=== PATIENT | male | born 1935 | race Two or more races ===

== ENCOUNTER 2024-10-01 04:50 | Day surgery (SDC) | payer OTHER ==
[2024-08-28 14:13] VITALS: BP 163/74
[2024-09-25 12:43] LABS: URINE APPEARANCE Error; URINE BILIRRUBIN Negative (NEGATIVE); URINE BLOOD NHT; URINE COLOR Yellow; URINE GLUCOSE Negative (NEGATIVE); URINE KETONE Negative (NEGATIVE); URINE LEUKOCYTE Negative; URINE NITRATE Negative; URINE PROTEIN Negative (NEGATIVE); URINE UROBILINOGEN 0.2 E.U./dl
[2024-09-25 12:44] LABS: URINE BACTERIA 9.7 uL (0.0-1933); URINE CAST 0.29 uL (0.0-1.40); URINE EPITHELIAL CELLS 1.7 uL (0.0-38.8); URINE RBC 57.7 uL (0.0-20.8); URINE WBC 1.1 uL (0.0-23.2)
[2024-09-25 12:53] LABS: HEMATOCRIT 41.6 % (39.0-48.0); HEMOGLOBIN 13.7 g/dL (13-16.00); MEAN CELL VOLUME 92.3 fL (80.0-100.00); MEAN CORPUSCULAR HEMOGLOBIN 30.3 pg (27.00-32.0); MEAN CORPUSCULAR HGB CONC 32.8 g/dl (32.0-36.0); PLATELET COUNT 206 K/uL (150-450); RED BLOOD COUNT 4.51 M/uL (4.00-6.00); RED CELL DISTRIBUTION WIDTH 14.3 % (11.5-14.5)
[2024-09-25 13:15] LABS: INR 0.96; PARTIAL THROMBOPLASTIN TIME 26.3 SECONDS (22.0-34.0); PROTHROMBIN TIME 10.5 SECONDS (9.0-11.5)
[2024-09-25 13:20] LABS: ALBUMIN 3.7 gm/dL (3.4-5.0); BILIRUBIN TOTAL 0.47 mg/dL (0.3-1.2); CALCIUM 9.1 mg/dL (8.5-10.1); CREATININE SERUM 0.93 mg/dL (0.70-1.30); GFR 76.68; GLOBULINA 3.6 G/DL (2.4-3.5); POTASSIUM 4.33 mEq/L (3.5-5.1); TOTAL PROTEIN 7.3 gm/dL (6.4-8.2)
[2024-09-25 13:44] VITALS: BP 146/68
[~2024-10-01] VITALS: Ht 162.6 cm; Wt 59.9 kg
[~2024-10-01 04:50] MED LIST: CYMBALTA60 MG PO; GLIMEPIRIDE1 M1 PO; GLUMETZA500 MG PO; HORIZANT600 MG PO; LIPITOR20 MG PO; LOSARTAN POTASS50 MG PO; MYRBETRIQ25 MG PO; NORVASC2.5 M1 PO; SYNTHROID50 MCG PO
[2024-10-01] MEDS ORDERED: CEFAZOLIN SODIUM 1,000 MG VIAL ONE (08:28)
[2024-10-01] MEDS ORDERED: LIDOCAINE HCL 1%/EPINEPHRINE 20ML VIAL IJ ONE ×2 (08:56→09:30)
[2024-10-01] MEDS ORDERED: BUPIVACAINE HCL 0.5% 50ML VIAL ONE (08:56)
[2024-10-01] MEDS ORDERED: CEFAZOLIN SODIUM 1,000 MG VIAL IV ONE (09:30)
[2024-10-01] MEDS ORDERED: BUPIVACAINE HCL/PF 0.25% 50 ML VIAL IJ ONE (09:30)
[2024-10-01] MEDS ORDERED: POVIDONE-IODINE 118 ML BOTT TOP ONE (09:41)
[2024-10-01] MEDS ORDERED: TRAM1TAB98 PO (11:34)
[2024-10-01] MEDS ORDERED: CEPHALEXIN500 M1 PO (11:35)
== END 2024-10-01 13:30 | disposition home or self-care (01) ==
LOC: CIR.AMB 04:50
PROVIDERS: ATTEND Surgery
DX: R15.9 Full incontinence of feces (principal); I10 Essential (primary) hypertension
CPT/HCPCS: 64581; 95972; C1778

== ENCOUNTER 2024-10-22 06:00 | Day surgery (SDC) | payer OTHER ==
[~2024-10-22 06:00] MED LIST changes: +CEPHALEXIN500 M1 PO; +TRAM1TAB98 PO
[2024-10-22] MEDS ORDERED: CEFAZOLIN SODIUM 1,000 MG VIAL ONE (07:03)
[2024-10-22] MEDS ORDERED: BUPIVACAINE HCL/MPF 0.5% 30ML VIAL ONE (07:18)
[2024-10-22] MEDS ORDERED: LIDOCAINE HCL 1%/EPINEPHRINE 20ML VIAL IJ ONE ×2 (07:18→08:00)
[2024-10-22] MEDS ORDERED: BUPIVACAINE HCL 30 ML VIAL IJ ONE (08:00)
[2024-10-22] MEDS ORDERED: CEFAZOLIN SODIUM 1,000 MG VIAL IV ONE (08:00)
[2024-10-22] MEDS ORDERED: TRAM1TAB98 PO (08:13)
== END 2024-10-22 10:40 | disposition home or self-care (01) ==
LOC: CIR.AMB 06:00
PROVIDERS: ATTEND Surgery
DX: R15.9 Full incontinence of feces (principal)
CPT/HCPCS: 64590; 95972; C1767